=== PATIENT | female | born 1940 | race Caucasian/White ===

== ENCOUNTER 2017-05-28 17:19 | Inpatient (IN) ==
[2017-05-28] MEDS ORDERED: 0.9 % Sodium Chloride 1,000 ML IVC ONE (17:24)
[2017-05-28 17:58] LABS: Basophils % 0.4 %; Eosinophils # 0.2 K/mcL (0.0-0.6); Eosinophils % 3.8 %; Hematocrit 20.5 % (35.3-44.9); Immature Granulocytes % 0.4 % (0-4); Lymphocytes # 0.8 K/mcL (0.6-4.6); Lymphocytes % 15.1 %; Mean Corpuscular HGB Conc 33.2 g/dL (31.6-35.5); Mean Corpuscular Hemoglobin 40.5 pg (28.0-33.3); Mean Platelet Volume 11.5 fL (9.4-12.4); Monocytes # 1.2 K/mcL (0.0-1.3); Monocytes % 22.3 %; Platelet Count 295 K/mcL (140-400); Red Blood Count 1.68 M/mcL (3.82-4.97); Red Cell Distribution Width 17.3 % (11.5-14.5)
[2017-05-28 18:14] LABS: Alanine Aminotransferase 8 Units/L (0-55); Albumin/Globulin Ratio 0.6 (1.1-2.2); Alkaline Phosphatase 77 Units/L (38-126); Aspartate Amino Transferase 11 Units/L (5-34); BUN/Creatinine Ratio 31 (6-26); Bilirubin,Total 0.5 mg/dL (0.2-1.2); Blood Urea Nitrogen 27 mg/dL (7-20); Calcium 7.4 mg/dL (8.6-10.8); Carbon Dioxide 17 mEq/L (19-29); Chloride 106 mEq/L (98-109); Globulin 3.2 g/dL (2.4-3.5); Glucose 100 mg/dL (70-99); Osmolality,Calculated 279 (280-300); Potassium 3.4 mEq/L (3.5-4.5); Sodium 132 mEq/L (136-145); Total Protein 5.1 g/dL (6.0-8.3); eGFR For African Americans > 60 (> 60); eGFR For Non-African Americans > 60 (> 60)
[2017-05-28 18:30] LABS: Anisocytosis 1+ (Not Present); Hemoglobin 6.8 g/dL (11.5-15.4); Macrocytosis Present (Not Present); Platelet Estimate Normal (Normal); Reactive Lymphocytes Present (Not Present)
[2017-05-28 18:31] LABS: Albumin 1.9 g/dL (3.5-5.0); Lipase < 10 Units/L (8-78)
--- NOTE | 2017-05-28 18:40 | Emergency Department Note ---
Disposition Clinical Impression: Diarrhea Disposition: Still a Patient Condition: Good Referrals: Jarad Morrison MD [Primary Care Provider] - Time of Disposition: 18:50 Nausea/Vomiting/Diarrhea HPI - General Chief complaint: ED Nausea/Vomiting/Diarrhea Stated complaint: diarrhea/weakness Time Seen by Provider: 05/28/17 17:24 Source: patient Mode of arrival: EMS Limitations: no limitations Nursing Notes Reviewed: Yes Vital Signs Reviewed: Yes - History of Present Illness HPI Narrative: Patient presents to the ED with the chief complaint of diarrhea and weakness. She is complaining of diarrhea for one week and weakness for the last 5 days. States she has had so many episodes of diarrhea. She cannot remember how many. States that she cannot keep up with her by mouth intake to keep up with the amount of diarrhea. Denies any recent hospital admissions or antibiotic use. No similar symptoms previously. States that she is having some much diarrhea she cannot get out of bed. Lives at home alone. - Related Data Allergies Allergy/AdvReac Type Severity Reaction Status Date / Time No Known Allergies Allergy Verified 04/20/15 17:18 All systems ED: reviewed and negative except as stated. Constitutional: Denies: fever Cardiovascular: Denies: chest pain Gastrointestinal: Reports: abdominal pain (cramping after diarrhea ), diarrhea. Denies: vomiting, melena, hematochezia Genitourinary: Denies: dysuria Musculoskeletal: Denies: back pain Past Medical History - Past Medical History Attestation: Yes The following information was validated with the patient. Source: patient Medical history: Reports: diabetes, osteoporosis Surgical history: Reports: cholecystectomy, hip replacement - Social History Smoking Status: Current every day smoker Smokeless Tobacco Status: Yes Physical Exam - General Limitations: no limitations General appearance: alert, in no apparent distress - Head Head exam: atraumatic, normocephalic, normal inspection - Eye Eye exam: Present: normal appearance, PERRL, EOMI - ENT ENT exam: mucous membranes dry - Respiratory Respiratory exam: Present: normal lung sounds bilaterally - Cardiovascular Cardiovascular exam: Present: regular rate, normal rhythm, normal heart sounds - Abdominal Exam Abdominal exam: Present: soft, Non-Tender. Absent: tenderness, distention, guarding, rebound, rigidity - Neurological Exam Neurological exam: Present: alert, oriented X3 - Psychiatric Psychiatric exam: Present: normal affect, normal mood - Skin Skin exam: Present: warm, dry, intact, normal color Course Course Narrative: Patient having profuse diarrhea. Smells like C. difficile. We will check labs sent off C. difficile, ova and parasites and stool culture. Patient will also need CT the abdomen and pelvis despite being nontender due to the amount of diarrhea she has had alone in the emergency department. Nursing staff placed a rectal tube Vital Signs Temperature 98.0 F 05/28/17 17:23 Pulse Rate 82 05/28/17 17:23 Respiratory Rate 14 05/28/17 17:23 Blood Pressure 101/72 05/28/17 17:23 O2 Sat by Pulse Oximetry 94 05/28/17 17:23 Temperature 98.0 F 05/28/17 17:23 Pulse Rate 82 05/28/17 17:23 Respiratory Rate 14 05/28/17 17:23 Blood Pressure 101/72 05/28/17 17:23 O2 Sat by Pulse Oximetry 94 05/28/17 17:23 Oxygen Delivery Oxygen Delivery Nasal Cannula Nausea/Vomiting/Diarrhea - Lab Data Result diagrams: 05/28/17 17:43 05/28/17 17:43 Lab Results 05/28/17 05/28/17 Range/Units 17:43 17:43 WBC 5.2 (4.3-11.1) K/mcL RBC 1.68 L (3.82-4.97) M/mcL Hgb 6.8 L (11.5-15.4) g/dL Hct 20.5 L (35.3-44.9) % MCV 122.0 H (83.0-100.0) fL MCH 40.5 H (28.0-33.3) pg MCHC 33.2 (31.6-35.5) g/dL RDW 17.3 H (11.5-14.5) % Plt Count 295 (140-400) K/mcL MPV 11.5 (9.4-12.4) fL Immature Gran % 0.4 (0-4) % Seg Neutrophils % 58.0 % Lymphocytes % 15.1 % Monocytes % 22.3 % Eosinophils % 3.8 % Basophils % 0.4 % Neutrophils # 3.0 (1.6-8.9) K/mcL Lymphocytes # 0.8 (0.6-4.6) K/mcL Monocytes # 1.2 (0.0-1.3) K/mcL Eosinophils # 0.2 (0.0-0.6) K/mcL Basophils # 0.0 (0.0-0.2) K/mcL Reactive Lymphocytes Present A (Not Present) Platelet Estimate Normal (Normal) Anisocytosis 1+ A (Not Present) Macrocytosis Present A (Not Present) Sodium 132 L (136-145) mEq/L Potassium 3.4 L (3.5-4.5) mEq/L Chloride 106 (98-109) mEq/L Carbon Dioxide 17 L (19-29) mEq/L BUN 27 H (7-20) mg/dL Creatinine 0.88 (0.57-1.11) mg/dL Est GFR ( Amer) > 60 (> 60) Est GFR (Non-Af Amer) > 60 (> 60) BUN/Creatinine Ratio 31 H (6-26) Glucose 100 H (70-99) mg/dL Calculated Osmolality 279 L (280-300) Calcium 7.4 L (8.6-10.8) mg/dL Total Bilirubin 0.5 (0.2-1.2) mg/dL AST 11 (5-34) Units/L ALT 8 (0-55) Units/L Alkaline Phosphatase 77 (38-126) Units/L Serum Total Protein 5.1 L (6.0-8.3) g/dL Albumin 1.9 L (3.5-5.0) g/dL Globulin 3.2 (2.4-3.5) g/dL Albumin/Globulin Ratio 0.6 L (1.1-2.2) Lipase < 10 (8-78) Units/L S.B.A.R. - S.B.A.R. Situation: Demographics, MOA Background: Presenting Complaint, Relevant PMH, Meds, & Allergies Assessment: Vital Signs, Course and respsone to treatment, Exam Concerns, Patient/Family Expectation, Pertinant Lab Results, Outstanding Labs Recommendation: Barrier(s) to disposition, Recommendation based on pending studies, treatments, or consults S.B.A.R. Report Given to: Dr. Robles MazaBPedroAGregorio Repor Time: 18:50 Attestation Statement - Attestation Attestation: I examined this patient and my medical decision-making was reviewed with the Resident Physician. I agree with the documented findings, disposition and treatment plan as described except to the extent set forth below. Patient to ED complaining of diarrhea and weakness for several days. Patient states she cannot drink enough water. She states she is weak and having trouble getting up and walking. Denies any recent hospital admissions or antibiotics. Exam shows her to be cachectic and with dry mucous membranes. Her abdomen is soft. Plan. Labs CT abdomen. The patient had a profuse amount of diarrhea and a short amount of time. Rectal tube was inserted. Patient likely admission.
[2017-05-28 19:11] LABS: Bilirubin,Urine Small (Negative); Blood,Urine Negative (Negative); Clarity,Urine Turbid (Clear); Color,Urine Dark Yellow (Yellow); Glucose,Urine (UA) Normal (Normal); Ketones,Urine Trace mg/dL (Negative); Leukocyte Esterase,Urine Large (Negative); Nitrite,Urine Negative (Negative); PH,Urine 6.5 pH Units (5.0-8.0); Protein,Urine 30 mg/dL (Neg-Trace); Specific Gravity,Urine 1.016 (1.010-1.025); Urobilinogen,Urine Normal (Normal)
[2017-05-28 19:13] LABS: Bacteria,Urine Many per hpf (None-Few); Hyaline Casts,Urine Few per lpf (None-Few); RBC,Urine 0-3 per hpf (0-3); Squamous Epithelial Cell,Urine Many per lpf (None-Few); WBC,Urine 30-50 per hpf (0-3)
[2017-05-28] MEDS ORDERED: 0.9 % Sodium Chloride 1,000 ML ONE (20:38)
[2017-05-28] MEDS ORDERED: Vancomycin Oral Soln 250 MG/5 ML UDC PO STA (20:41)
[2017-05-28] MEDS ORDERED: MetroNIDAZOLE 500 MG/100 ML 500 MG/100 ML BAG IVPB ONE (20:41)
--- NOTE | 2017-05-28 21:56 | Emergency Department Note ---
Disposition Clinical Impression: C. difficile diarrhea, C. difficile colitis Disposition: Admitted As Inpatient Condition: Good Time of Disposition: 21:57 Nausea/Vomiting/Diarrhea HPI - General Chief complaint: ED Nausea/Vomiting/Diarrhea Stated complaint: diarrhea/weakness Time Seen by Provider: 05/28/17 17:24 Source: patient Mode of arrival: EMS Limitations: no limitations Nursing Notes Reviewed: Yes Vital Signs Reviewed: Yes - History of Present Illness HPI Narrative: Patient received on sign out from the day team, Dr. Pfeiffer and Dr. Patrick. Please refer to their note for complete history and physical exam on intake. History of present illness): Patient presents from home for 7 day history of profuse loose foul-smelling bowels. No hematochezia. No melena. No fever. Intermittent chills. She is unable to quantify her number of bowel movements. She has had 5+ since presentation to the emergency department prior to placement of the rectal tube. She has had no recent antibiotics. She lives at home by herself. Unknown exposure. She feels weak, fatigued, very thirsty. No chest pains, palpitations, dyspnea, diaphoresis. Mild abdominal cramping with bowel movements otherwise no abdominal pain. - Related Data Home Medications Medication Instructions Recorded Confirmed Acetaminophen [Tylenol] 500 mg PO Q6H PRN 05/28/17 05/28/17 Aspirin Enteric Coated [Aspirin EC] 81 mg PO DAILY 05/28/17 05/28/17 Calcium Carbonate [Calcium] 600 mg PO DAILY 05/28/17 05/28/17 Cholecalciferol (D-3) [Vitamin D] 1,000 unit PO DAILY 05/28/17 05/28/17 Insulin Glargine,Hum.rec.anlog 8 unit SQ 1200 PRN 05/28/17 05/28/17 [Lantus Solostar] Lisinopril [Zestril] 5 mg PO DAILY 05/28/17 05/28/17 Oxygen 1 each .ROUTE AD 05/28/17 05/28/17 Vit A/C/E AC/Znox/Cupric Oxide 1 each PO DAILY 05/28/17 05/28/17 [Eye Vitamin-Minerals Tablet] Allergies Allergy/AdvReac Type Severity Reaction Status Date / Time No Known Allergies Allergy Verified 04/20/15 17:18 All systems ED: reviewed and negative except as stated. Review of Systems: As Per HPI Constitutional: Denies: fever Cardiovascular: Denies: chest pain Gastrointestinal: Reports: abdominal pain (cramping after diarrhea ), diarrhea. Denies: vomiting, melena, hematochezia Genitourinary: Denies: dysuria Musculoskeletal: Denies: back pain Past Medical History - Past Medical History Medical history: Reports: diabetes, osteoporosis Surgical history: Reports: cholecystectomy, hip replacement - Social History Smoking Status: Current every day smoker Smokeless Tobacco Status: Yes Physical Exam Vital Signs Reviewed General: Patient is alert, oriented, and in no acute distress. She is resting comfortably in bed. HEENT: No facial asymmetry. Head is normocephalic and atraumatic. PERRL, EOMI. oral mucosa tacky. Trachea midline. Cardiovascular: Heart regular rate and rhythm without clicks, rubs, gallops, or murmurs. No JVD. PMI nondisplaced. Bilateral radial pulses 2/4 and equal. Respiratory: Symmetric chest rise with good respiratory effort. Bilateral breath sounds are clear without wheezing, crackles, or rhonchi. Abdomen: Bowel sounds present normoactive x-4 quadrants. Abdomen is soft, nondistended. Tender in the hypogastric. Psych: Patient's affect is appropriate for situation. Skin: Warm, dry, intact. - General Limitations: no limitations General appearance: alert, in no apparent distress Course Course Narrative: Patient received on sign out from the day team, Dr. Pfeiffer and Dr. Patrick. Please refer to their note for complete history and physical exam on intake. Patient stool sample positive for C. difficile toxin. Begin empiric Flagyl IV and vancomycin by mouth. Patient's blood pressures have been soft with systolic in the low 90s. We will continue IV fluid rehydration. Patient agrees to admission for continued evaluation and management. I discussed the patient with the admitting hospitalist, Dr. Mcintosh, who agrees to accept the patient continued evaluation and management. Vital Signs Temperature 98.0 F 05/28/17 17:23 Pulse Rate 82 05/28/17 17:23 Respiratory Rate 14 05/28/17 17:23 Blood Pressure 101/72 05/28/17 17:23 O2 Sat by Pulse Oximetry 94 05/28/17 17:23 Temperature 98.0 F 05/28/17 17:23 Pulse Rate 90 05/28/17 19:05 Respiratory Rate 18 05/28/17 19:05 Blood Pressure 110/82 05/28/17 19:05 O2 Sat by Pulse Oximetry 96 05/28/17 19:05 Oxygen Delivery Oxygen Delivery Nasal Cannula Nausea/Vomiting/Diarrhea - Lab Data Result diagrams: 05/28/17 17:43 05/28/17 17:43 Lab Results 05/28/17 05/28/17 05/28/17 Range/Units 17:43 17:43 18:50 WBC 5.2 (4.3-11.1) K/mcL RBC 1.68 L (3.82-4.97) M/mcL Hgb 6.8 L (11.5-15.4) g/dL Hct 20.5 L (35.3-44.9) % MCV 122.0 H (83.0-100.0) fL MCH 40.5 H (28.0-33.3) pg MCHC 33.2 (31.6-35.5) g/dL RDW 17.3 H (11.5-14.5) % Plt Count 295 (140-400) K/mcL MPV 11.5 (9.4-12.4) fL Immature Gran % 0.4 (0-4) % Seg Neutrophils % 58.0 % Lymphocytes % 15.1 % Monocytes % 22.3 % Eosinophils % 3.8 % Basophils % 0.4 % Neutrophils # 3.0 (1.6-8.9) K/mcL Lymphocytes # 0.8 (0.6-4.6) K/mcL Monocytes # 1.2 (0.0-1.3) K/mcL Eosinophils # 0.2 (0.0-0.6) K/mcL Basophils # 0.0 (0.0-0.2) K/mcL Reactive Lymphocytes Present A (Not Present) Platelet Estimate Normal (Normal) Anisocytosis 1+ A (Not Present) Macrocytosis Present A (Not Present) Sodium 132 L (136-145) mEq/L Potassium 3.4 L (3.5-4.5) mEq/L Chloride 106 (98-109) mEq/L Carbon Dioxide 17 L (19-29) mEq/L BUN 27 H (7-20) mg/dL Creatinine 0.88 (0.57-1.11) mg/dL Est GFR ( Amer) > 60 (> 60) Est GFR (Non-Af Amer) > 60 (> 60) BUN/Creatinine Ratio 31 H (6-26) Glucose 100 H (70-99) mg/dL Calculated Osmolality 279 L (280-300) Calcium 7.4 L (8.6-10.8) mg/dL Total Bilirubin 0.5 (0.2-1.2) mg/dL AST 11 (5-34) Units/L ALT 8 (0-55) Units/L Alkaline Phosphatase 77 (38-126) Units/L Serum Total Protein 5.1 L (6.0-8.3) g/dL Albumin 1.9 L (3.5-5.0) g/dL Globulin 3.2 (2.4-3.5) g/dL Albumin/Globulin Ratio 0.6 L (1.1-2.2) Lipase < 10 (8-78) Units/L Urine Color Dark Yellow (Yellow) Urine Clarity Turbid A (Clear) Urine pH 6.5 (5.0-8.0) pH Units Ur Specific [place] 1.016 (1.010-1.025) Urine Protein 30 H (Neg-Trace) mg/dL Urine Glucose (UA) Normal (Normal) mg/dL Urine Ketones Trace H (Negative) mg/dL Urine Blood Negative (Negative) Urine Nitrite Negative (Negative) Urine Bilirubin Small H (Negative) Urine Urobilinogen Normal (Normal) mg/dL Ur Leukocyte Esterase Large H (Negative) Urine Microscopic RBC 0-3 (0-3) per hpf Urine Microscopic WBC 30-50 H (0-3) per hpf Ur Squamous Epith Cells Many H (None-Few) per lpf Urine Bacteria Many H (None-Few) per hpf Hyaline Casts Few (None-Few) per lpf Ur Culture Indicated? YES A (NO) Stool Occult Blood (Negative) Stl C. diff Tox B Gene (Negative) Blood Type Antibody Screen 05/28/17 05/28/17 05/28/17 Range/Units 18:50 19:04 19:35 WBC (4.3-11.1) K/mcL RBC (3.82-4.97) M/mcL Hgb (11.5-15.4) g/dL Hct (35.3-44.9) % MCV (83.0-100.0) fL MCH (28.0-33.3) pg MCHC (31.6-35.5) g/dL RDW (11.5-14.5) % Plt Count (140-400) K/mcL MPV (9.4-12.4) fL Immature Gran % (0-4) % Seg Neutrophils % % Lymphocytes % % Monocytes % % Eosinophils % % Basophils % % Neutrophils # (1.6-8.9) K/mcL Lymphocytes # (0.6-4.6) K/mcL Monocytes # (0.0-1.3) K/mcL Eosinophils # (0.0-0.6) K/mcL Basophils # (0.0-0.2) K/mcL Reactive Lymphocytes (Not Present) Platelet Estimate (Normal) Anisocytosis (Not Present) Macrocytosis (Not Present) Sodium (136-145) mEq/L Potassium (3.5-4.5) mEq/L Chloride (98-109) mEq/L Carbon Dioxide (19-29) mEq/L BUN (7-20) mg/dL Creatinine (0.57-1.11) mg/dL Est GFR ( Amer) (> 60) Est GFR (Non-Af Amer) (> 60) BUN/Creatinine Ratio (6-26) Glucose (70-99) mg/dL Calculated Osmolality (280-300) Calcium (8.6-10.8) mg/dL Total Bilirubin (0.2-1.2) mg/dL AST (5-34) Units/L ALT (0-55) Units/L Alkaline Phosphatase (38-126) Units/L Serum Total Protein (6.0-8.3) g/dL Albumin (3.5-5.0) g/dL Globulin (2.4-3.5) g/dL Albumin/Globulin Ratio (1.1-2.2) Lipase (8-78) Units/L Urine Color (Yellow) Urine Clarity (Clear) Urine pH (5.0-8.0) pH Units Ur Specific [place] (1.010-1.025) Urine Protein (Neg-Trace) mg/dL Urine Glucose (UA) (Normal) mg/dL Urine Ketones (Negative) mg/dL Urine Blood (Negative) Urine Nitrite (Negative) Urine Bilirubin (Negative) Urine Urobilinogen (Normal) mg/dL Ur Leukocyte Esterase (Negative) Urine Microscopic RBC (0-3) per hpf Urine Microscopic WBC (0-3) per hpf Ur Squamous Epith Cells (None-Few) per lpf Urine Bacteria (None-Few) per hpf Hyaline Casts (None-Few) per lpf Ur Culture Indicated? (NO) Stool Occult Blood Negative (Negative) Stl C. diff Tox B Gene Positive (Negative) Blood Type O POSITIVE Antibody Screen NEGATIVE Attestation Statement - Attestation Attestation: I, Cas Arboleda MD, personally evaluated this patient and discussed their management with the resident physician. I reviewed the resident's note and agree with the documented findings, medical decision making, and plan of care. This patient was signed out at shift change from Dr. Patrick and Dr. pfeiffer. Please refer to their notes for complete details of the history and physical examination. Patient presented with a 7-10 day history of diarrhea. She has not had multiple episodes of watery foul-smelling diarrhea just after arrival and a rectal tube was placed. Stool was positive for C. difficile. Negative Hemoccult. Patient also found to be anemic with a hemoglobin of 6.8. Last hemoglobin was 10. CT of the abdomen and pelvis showed an acute nonspecific colitis or enterocolitis is suspected with bowel wall thickening/edema primarily involving the colon. There is associated mesenteric fat stranding. On examination patient is a well-developed well-nourished elderly female in no acute distress. She is alert and oriented. There is no cyanosis or diaphoresis. Labs reviewed. CT reviewed. The hospitalist, Dr. Mcintosh, was consulted and accepted admission of the patient.
[2017-05-28] MEDS ORDERED: Naloxone 0.4 MG/ML INJ IVP PRN (23:11)
[2017-05-28] MEDS ORDERED: Acetaminophen 325 MG TABLET PO PRN (23:11)
[2017-05-28] MEDS ORDERED: Ondansetron 4 MG/2 ML VIAL IVP PRN (23:11)
[2017-05-28] MEDS ORDERED: *HR* HYDROmorphone (PF) 1 MG/ML SYRINGE IVP PRN (23:11)
[2017-05-28] MEDS ORDERED: *HR* HYDROcodone/Acet 5/325 mg TABLET PO PRN (23:11)
--- NOTE | 2017-05-28 23:26 | Internal Med History&Physical ---
Date of Encounter: 05/29/17 Time of Encounter: 23:20 Assessment and Plan (1) C. difficile diarrhea Current visit: Yes Status: Acute - Diffuse watery diarrhea for multiple weeks. - Uncertain etiology, no recent antibiotic use, sick contacts, travel, recent hospitalizations. - C.diff toxin positive in ED. - Severe classification given albumin of 1.9, advanced age. Cr and wbc wnl - Oral vancomycin and flagyl started, 125 mg QID and 500 mg IV q8 - Fluid bolus of 1.5 L followed by maintenance fluids (2) COPD (chronic obstructive pulmonary disease) Current visit: Yes Status: Chronic - Chronic and stable per pt. - Continue home meds and supplimental O2 to saturation >88% Qualifiers: COPD type: unspecified COPD Qualified Code(s): J44.9 - Chronic obstructive pulmonary disease, unspecified (3) Anemia Current visit: Yes Status: Acute -H/H of 6.8/20.5 - Possible etiologies of chronic disease vs acute blood loss vs iron deficiency vs folate/B12 deficiency given MCV of 122 - Will order labs for reticulocytosis. LDH, reticulocyte count. - Protonix IV for precaution of GI bleed. Will repeat stool occult blood. - Type and cross. Will transfuse 1 unit PRBCs tonight with repeat CBC in AM. Qualifiers: Anemia type: unspecified type Qualified Code(s): D64.9 - Anemia, unspecified (4) Diabetes mellitus Current visit: Yes Status: Acute - BS of 100 in ED. A1c of 5.7% in july of last year - Repeat A1c pending. - Will start SSI correction scale. 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 - UA in ED positive for WBCs, leukocyte esterase. Culture pending. - Will start rocephin Qualifiers: Urinary tract infection type: acute cystitis Hematuria presence: without hematuria Qualified Code(s): N30.00 - Acute cystitis without hematuria (6) Hypokalemia Current visit: Yes Status: Acute K of 3.4 in ED. - Will replenish now. Repeat Am labs. Stat Mg lab. (7) DVT prophylaxis Current visit: Yes Status: Acute SCDs. Pt is anemic and having profuse diarrhea. Will hold off on anticoagulation for time being. Internal Medicine - H&P: HPI Chief complaint: diarrhea Admitted From: Emergency Dept Plans for Post Hospital Care: Home History of present illness: Ms. Ramirez is a 76 year old female who presents to ED with a complaint of diarrhea for the past 2 weeks. She states that her symptoms came on gradually and have progressively gotten to the point where she was unable to tolerate it. She admits that she has been getting progressively weaker. She is unable to describe the BMs as she is legally blind but she does state they have been watery and loose. She is unsure on how frequent. She also complains of intermittent nausea without vomiting, lightheadedness, subjective fevers with chills, occasional palpitations, decreased oral intake and SOB from her COPD. She denies any symptoms of chest pain, numbness, tingling, abdominal pain. She also admits to some dysuria during this time. She denies any recent illness, any antibiotic use within the last few months, sick contacts, travel. In the ED, VSS, labs show anemia, normal WBC, normal Cr, albumin 1.9. Stool positive for C.diff toxin. She was started on oral vanc and metronidazole and given fluids. Past Med Surg Social Fam HX - Past Medical History Medical history: COPD, diabetes, osteoporosis - Past Surgical History Surgical History: cholecystectomy, hip replacement - Social History Smoking Status: Current every day smoker Smokeless Tobacco Status: Yes Alcohol use: none Drug use: none Occupational status: retired Internal Medicine - H&P: Meds Acetaminophen [Tylenol] 500 mg PO Q6H PRN 05/28/17 [History] Aspirin Enteric Coated [Aspirin EC] 81 mg PO DAILY 05/28/17 [History] Calcium Carbonate [Calcium] 600 mg PO DAILY 05/28/17 [History] Cholecalciferol (D-3) [Vitamin D] 1,000 unit PO DAILY 05/28/17 [History] Insulin Glargine,Hum.rec.anlog [Lantus Solostar] 8 unit SQ 1200 PRN 05/28/17 [ History] Lisinopril [Zestril] 5 mg PO DAILY 05/28/17 [History] Oxygen 1 each .ROUTE AD 05/28/17 [History] Vit A/C/E AC/Znox/Cupric Oxide [Eye Vitamin-Minerals Tablet] 1 each PO DAILY [History] 3 Allergy/AdvReac Type Severity Reaction Status Date / Time No Known Allergies Allergy Verified 04/20/15 17:18 All Systems PM: A 10-system review of systems was performed and is negative for pertinent findings except as documented above in the HPI. - Constitutional Constitutional: chills, fatigue, fever(s), lethargy, weakness, no excessive sweating - Cardiovascular Cardiovascular ROS IM: lightheadedness, palpitations, no chest pain, no diaphoresis, no dyspnea, no dyspnea on exertion, no syncope - Respiratory Respiratory: cough (chronic COPD), dyspnea, no dyspnea on exertion, no wheezing , no excessive phlegm production, no change in phlegm color - Gastrointestinal Gastrointestinal: change in bowel habits, change in stool character, diarrhea, loose stools, nausea, no abdominal pain, no coffee ground emesis, no constipation, no hematemesis, no vomiting - Genitourinary Genitourinary: dysuria, urinary frequency - Musculoskeletal Musculoskeletal ROS IM: muscle weakness, no numbness, no tingling - Neurological Neurological ROS: dizziness, weakness, no headache(s), no numbness, no tingling - Constitutional Vitals: Temp Pulse Resp BP Pulse Ox 98.0 F 90 18 110/82 96 05/28/17 17:23 05/28/17 19:05 05/28/17 19:05 05/28/17 19:05 05/28/17 19:05 Exam: Gen.: Vitals noted. No acute distress. AAOx3 HEENT: PERRL, oropharynx clear, Normocephalic, atraumatic,dry mucus membranes Cardiac: RRR, no murmur, +S1/S2 Pulmonary: CTA bilaterally, no rales or rhonchi, equal chest expansion Abdomen: soft, tender to palpation in LLQ and RLQ. No rebound. Hyperactive BS. MSK: ROM intact, no joint swelling noted Extremities: no BLE edema, nontender calf, no cyanosis or clubbing Neuro: A&Ox3, moves all extremities, no focal deficits Psych: Appropriate mood and behavior Internal Med - H&P Results - Labs CBC & Chem 7: 05/28/17 17:43 05/28/17 17:43
[2017-05-28] MEDS ORDERED: 0.9 % Sodium Chloride 500 ML IVC ONE (23:29)
[2017-05-28] MEDS ORDERED: *HR* Dextrose 50 % in Water (Syg) 50 ML SYRINGE IVP PRN (23:51)
[2017-05-28] MEDS ORDERED: D5% in Water 1,000 ML IVC PRN (23:51)
[2017-05-28] MEDS ORDERED: Dextrose Gel 15 GM PO PRN ×2 (23:51)
--- NOTE | 2017-05-29 00:33 | Event Note ---
Date of Encounter: 05/29/17 Time of Encounter: 00:25 Patient seen and examined with medical technologist. Agree with assessment and plan. Severe C. difficile colitis. Will start the patients on IV flagyl and PO vancomycin. Patient also has a urinary tract infection. We will start the patient on ceftriaxone. Extend antibiotics for C diff 5 extra days because of ceftriaxone. Will hydrate. Replace electrolytes. Physical therapy occupational therapy and social media intern to see. Telemetry monitoring. She is full code
[2017-05-29 01:29] LABS: Basophils % 0.4 %; Eosinophils # 0.2 K/mcL (0.0-0.6); Hematocrit 19.5 % (35.3-44.9); Hemoglobin 6.5 g/dL (11.5-15.4); Immature Granulocytes % 0.2 % (0-4); Immature Platelets 6.3 % (1.1-6.1); Lymphocytes # 1.1 K/mcL (0.6-4.6); Lymphocytes % 21.9 %; Mean Corpuscular HGB Conc 33.3 g/dL (31.6-35.5); Mean Corpuscular Hemoglobin 40.9 pg (28.0-33.3); Mean Corpuscular Volume 122.6 fL (83.0-100.0); Mean Platelet Volume 10.5 fL (9.4-12.4); Monocytes # 0.9 K/mcL (0.0-1.3); Monocytes % 17.7 %; Neutrophils # 2.6 K/mcL (1.6-8.9); Platelet Count 317 K/mcL (140-400); Red Blood Count 1.59 M/mcL (3.82-4.97); Red Cell Distribution Width 17.8 % (11.5-14.5); Segmented Neutrophils % 54.8 %
[2017-05-29 01:33] LABS: Immature Reticulocyte % 16.3 % (11.0-38.0); Retculocyte # 0.02 M/mcL (0.05-0.10); Reticulocyte % 1.3 % (1.6-2.8)
[2017-05-29 01:43] LABS: BUN/Creatinine Ratio 29 (6-26); Blood Urea Nitrogen 24 mg/dL (7-20); Calcium 7.2 mg/dL (8.6-10.8); Carbon Dioxide 18 mEq/L (19-29); Chloride 110 mEq/L (98-109); Glucose 91 mg/dL (70-99); Magnesium 1.4 mg/dL (1.6-2.6); Osmolality,Calculated 284 (280-300); Phosphorous 3.8 mg/dL (2.3-4.7); Potassium 3.1 mEq/L (3.5-4.5); Sodium 135 mEq/L (136-145); eGFR For African Americans > 60 (> 60); eGFR For Non-African Americans > 60 (> 60)
[2017-05-29 01:49] LABS: Platelet Estimate Normal (Normal); Reactive Lymphocytes Present (Not Present)
[2017-05-29 01:50] LABS: Anisocytosis 1+ (Not Present); Macrocytosis Present (Not Present)
[2017-05-29] MEDS: 0.9 % Sodium Chloride 1,000 ML IVC SCH ×2 (02:48→23:18)
[2017-05-29] MEDS: Nicotine 21 MG PATCH.TD24 TD SCH ×2 (03:02→07:45)
[2017-05-29] MEDS ORDERED: Magnesium Sulfate 2 GM in D5% in Water 100 ML IVPB ONE (04:22)
[2017-05-29] MEDS: Pantoprazole 40 MG VIAL IVP SCH ×2 (06:01→18:27)
[2017-05-29] MEDS: Aspirin Enteric Coated 81 MG Tablet PO SCH (07:57)
[2017-05-29] MEDS: MetroNIDAZOLE 500 MG/100 ML 500 MG/100 ML BAG IVPB SCH ×3 (07:57→23:18)
[2017-05-29] MEDS: Insulin LISPRO 300 UNITS/3 ML VIAL SQ SCH ×3 (07:58→16:21)
[2017-05-29] MEDS: cefTRIAXone 1,000 MG in Water for inj. (sterile) 10 ML IVP SCH (10:55)
[2017-05-29] MEDS: Vancomycin Oral Soln 250 MG/5 ML UDC PO SCH ×5 (10:55→23:42)
[2017-05-29] MEDS ORDERED: 0.9 % Sodium Chloride 250 ML ONE (12:31)
[2017-05-29] MEDS: 0.9 % Sodium Chloride 250 ML ONE ×2 (12:42→12:43)
[2017-05-29 22:39] LABS: BUN/Creatinine Ratio 27 (6-26); Blood Urea Nitrogen 20 mg/dL (7-20); Calcium 6.6 mg/dL (8.6-10.8); Carbon Dioxide 17 mEq/L (19-29); Chloride 110 mEq/L (98-109); Glucose 189 mg/dL (70-99); Magnesium 1.4 mg/dL (1.6-2.6); Osmolality,Calculated 282 (280-300); Sodium 132 mEq/L (136-145); eGFR For African Americans > 60 (> 60); eGFR For Non-African Americans > 60 (> 60)
[2017-05-30 03:09] LABS: Hemoglobin 8.2 g/dL (11.5-15.4); Immature Platelets 6.9 % (1.1-6.1); Mean Corpuscular HGB Conc 34.2 g/dL (31.6-35.5); Mean Corpuscular Hemoglobin 36.6 pg (28.0-33.3); Mean Corpuscular Volume 107.1 fL (83.0-100.0); Mean Platelet Volume 11.6 fL (9.4-12.4); Nucleated Red Blood Cells 0.3 /100 WBC (0); Platelet Count 286 K/mcL (140-400); Red Blood Count 2.24 M/mcL (3.82-4.97)
[2017-05-30 03:53] LABS: Lymphocytes # 0.7 K/mcL (0.6-4.6); Monocytes # 0.6 K/mcL (0.0-1.3); Neutrophils # 6.1 K/mcL (1.6-8.9)
[2017-05-30 03:54] LABS: Poikilocytosis 2+ (Not Present)
[2017-05-30 03:55] LABS: Acanthocytes 1+ (Not Present); Macrocytosis Present (Not Present)
[2017-05-30 03:56] LABS: Hypochromasia Present (Not Present)
[2017-05-30 03:57] LABS: Platelet Estimate Normal (Normal)
[2017-05-30 03:58] LABS: Large Platelets Present (Not Present)
[2017-05-30 03:59] LABS: Anisocytosis 1+ (Not Present); Reactive Lymphocytes Present (Not Present)
[2017-05-30] MEDS: Pantoprazole 40 MG VIAL IVP SCH ×2 (06:43→17:07)
[2017-05-30] MEDS: Insulin LISPRO 300 UNITS/3 ML VIAL SQ SCH ×3 (07:51→17:25)
[2017-05-30] MEDS: MetroNIDAZOLE 500 MG/100 ML 500 MG/100 ML BAG IVPB SCH ×2 (08:03→17:08)
[2017-05-30] MEDS: Aspirin Enteric Coated 81 MG Tablet PO SCH (08:03)
[2017-05-30] MEDS: cefTRIAXone 1,000 MG in Water for inj. (sterile) 10 ML IVP SCH (08:04)
[2017-05-30] MEDS: Nicotine 21 MG PATCH.TD24 TD SCH (08:04)
[2017-05-30] MEDS: Vancomycin Oral Soln 250 MG/5 ML UDC PO SCH ×4 (08:05→21:57)
[2017-05-30 09:29] LABS: BUN/Creatinine Ratio 24 (6-26); Blood Urea Nitrogen 17 mg/dL (7-20); Calcium 6.9 mg/dL (8.6-10.8); Carbon Dioxide 15 mEq/L (19-29); Chloride 112 mEq/L (98-109); Glucose 94 mg/dL (70-99); Osmolality,Calculated 279 (280-300); Potassium 3.1 mEq/L (3.5-4.5); Sodium 134 mEq/L (136-145); eGFR For African Americans > 60 (> 60); eGFR For Non-African Americans > 60 (> 60)
[2017-05-30] MEDS: Multivit/Ca/Min/Fe/FA 1 TAB TABLET PO SCH (11:10)
[2017-05-30] MEDS: 0.9 % Sodium Chloride 1,000 ML IVC SCH (11:21)
[2017-05-30] MEDS ORDERED: Magnesium Sulfate 2 GM in D5% in Water 100 ML IVPB ONE ×2 (14:16→14:25)
--- NOTE | 2017-05-30 22:02 | Internal Med Progress Note ---
Date of Encounter: 05/29/17 Time of Encounter: 13:00 - Assessment and plan (1) C. difficile colitis Current Visit: Yes Status: Acute Assessment and plan: Continue IVF, Flagyl, oral vancomycin, advance diet as tolerated. - Subjective Interval history: No acute events. She is unable to tolerate food. Multiple BM loose clear per day. Denies fevers/chills. Complains of abdominal discomfort. - Constitutional Vitals: Temp Pulse Resp BP Pulse Ox 98.4 F 76 14 101/63 91 05/30/17 20:20 05/30/17 20:20 05/30/17 20:20 05/30/17 20:20 05/30/17 20:20 General appearance: Present: cachectic, A&O X 3, no acute distress Exam: CVS: rrr lungs: ctab abd: soft, nt/nd, hyperactive ext: no edema Internal Medicine: Result - Labs CBC & Chem 7: 05/30/17 02:39 05/30/17 02:39 Labs: Short CBC 05/30/17 Range/Units 02:39 WBC 7.4 D (4.3-11.1) K/mcL Hgb 8.2 L D (11.5-15.4) g/dL Hct 24.0 L (35.3-44.9) % Plt Count 286 (140-400) K/mcL Neutrophils # 6.1 (1.6-8.9) K/mcL BMP 05/29/17 05/30/17 22:05 02:39 Sodium 132 L 134 L Potassium 3.0 L 3.1 L Chloride 110 H 112 H Carbon Dioxide 17 L 15 L BUN 20 17 Creatinine 0.73 0.71 Glucose 189 H 94 Calcium 6.6 L 6.9 L - VTE Documentation of Mechanical Device: Intermittent pneumatic compression device Consult Discharge Plan - Plan Referrals: Jarad Morrison MD [Primary Care Provider] -
--- NOTE | 2017-05-30 22:08 | Internal Med Progress Note ---
Date of Encounter: 05/30/17 Time of Encounter: 15:39 - Assessment and plan (1) C. difficile colitis Current Visit: Yes Status: Acute Assessment and plan: Continue IVF, Flagyl, oral vancomycin, advance diet as tolerated. - Subjective Interval history: No acute events. She is unable to tolerate food. Multiple BM loose clear per day. Denies fevers/chills. Complains of abdominal discomfort. - Constitutional Vitals: Temp Pulse Resp BP Pulse Ox 98.4 F 76 14 101/63 91 05/30/17 20:20 05/30/17 20:20 05/30/17 20:20 05/30/17 20:20 05/30/17 20:20 General appearance: Present: cachectic, A&O X 3, no acute distress Exam: CVS: RRR Lungs: CTAB ABd; soft, nt, hyperactive bs ext: no edema Internal Medicine: Result - Labs CBC & Chem 7: 05/30/17 02:39 05/30/17 02:39 Labs: Short CBC 05/30/17 Range/Units 02:39 WBC 7.4 D (4.3-11.1) K/mcL Hgb 8.2 L D (11.5-15.4) g/dL Hct 24.0 L (35.3-44.9) % Plt Count 286 (140-400) K/mcL Neutrophils # 6.1 (1.6-8.9) K/mcL BMP 05/29/17 05/30/17 22:05 02:39 Sodium 132 L 134 L Potassium 3.0 L 3.1 L Chloride 110 H 112 H Carbon Dioxide 17 L 15 L BUN 20 17 Creatinine 0.73 0.71 Glucose 189 H 94 Calcium 6.6 L 6.9 L - VTE Documentation of Mechanical Device: Intermittent pneumatic compression device Consult Discharge Plan - Plan Referrals: Jarad Morrison MD [Primary Care Provider] -
[2017-05-31] MEDS: MetroNIDAZOLE 500 MG/100 ML 500 MG/100 ML BAG IVPB SCH ×4 (01:01→23:55)
[2017-05-31] MEDS: 0.9 % Sodium Chloride 1,000 ML IVC SCH (01:04)
[2017-05-31 05:11] LABS: Basophils % 0.6 %; Eosinophils # 0.2 K/mcL (0.0-0.6); Eosinophils % 2.6 %; Hematocrit 25.2 % (35.3-44.9); Hemoglobin 8.5 g/dL (11.5-15.4); Immature Granulocytes % 1.1 % (0-4); Lymphocytes # 0.9 K/mcL (0.6-4.6); Lymphocytes % 12.6 %; Mean Corpuscular HGB Conc 33.7 g/dL (31.6-35.5); Mean Corpuscular Hemoglobin 36.2 pg (28.0-33.3); Mean Corpuscular Volume 107.2 fL (83.0-100.0); Mean Platelet Volume 11.8 fL (9.4-12.4); Monocytes # 0.8 K/mcL (0.0-1.3); Monocytes % 11.1 %; Platelet Count 288 K/mcL (140-400); Red Blood Count 2.35 M/mcL (3.82-4.97)
[2017-05-31 05:23] LABS: BUN/Creatinine Ratio 19 (6-26); Blood Urea Nitrogen 12 mg/dL (7-20); Carbon Dioxide 16 mEq/L (19-29); Chloride 116 mEq/L (98-109); Glucose 95 mg/dL (70-99); Osmolality,Calculated 284 (280-300); Potassium 3.6 mEq/L (3.5-4.5); Sodium 137 mEq/L (136-145); eGFR For African Americans > 60 (> 60); eGFR For Non-African Americans > 60 (> 60)
[2017-05-31] MEDS: Pantoprazole 40 MG VIAL IVP SCH ×2 (05:37→18:08)
[2017-05-31 06:04] LABS: Macrocytosis Present (Not Present)
[2017-05-31 06:05] LABS: Anisocytosis 2+ (Not Present); Platelet Estimate Normal (Normal); Schistocytes 1+ (Not Present)
[2017-05-31 06:06] LABS: Reactive Lymphocytes Present (Not Present)
[2017-05-31] MEDS: Multivit/Ca/Min/Fe/FA 1 TAB TABLET PO SCH (09:14)
[2017-05-31] MEDS: Aspirin Enteric Coated 81 MG Tablet PO SCH (09:15)
[2017-05-31] MEDS: Nicotine 21 MG PATCH.TD24 TD SCH (09:18)
[2017-05-31] MEDS: cefTRIAXone 1,000 MG in Water for inj. (sterile) 10 ML IVP SCH (09:19)
[2017-05-31] MEDS: Vancomycin Oral Soln 250 MG/5 ML UDC PO SCH ×4 (09:20→20:53)
[2017-05-31] MEDS: Insulin LISPRO 300 UNITS/3 ML VIAL SQ SCH ×3 (09:20→17:44)
[2017-05-31] MEDS: Ringers Solution, Lactated 1,000 ML IVC SCH ×2 (09:21→20:52)
--- NOTE | 2017-05-31 17:04 | Electrocardiograph Report ---
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
--- NOTE | 2017-06-01 05:19 | Internal Med Progress Note ---
Date of Encounter: 05/31/17 Time of Encounter: 14:17 - Assessment and plan (1) C. difficile colitis Current Visit: Yes Status: Acute Assessment and plan: Continue IVF, Flagyl, oral vancomycin, advance diet as tolerated. Add D5 if patient needs more IVF. Nursing to change rectal bag, may remove tube if less stool output. (2) COPD (chronic obstructive pulmonary disease) Current Visit: Yes Status: Chronic Qualifiers: COPD type: unspecified COPD Qualified Code(s): J44.9 - Chronic obstructive pulmonary disease, unspecified (3) Anemia Current Visit: Yes Status: Acute Qualifiers: Anemia type: unspecified type Qualified Code(s): D64.9 - Anemia, unspecified (4) Diabetes mellitus Current Visit: Yes Status: Acute Qualifiers: Diabetes mellitus type: type 2 Diabetes mellitus complication status: with ophthalmic complications Diabetes mellitus complication detail: with diabetic retinopathy Diabetic retinopathy severity: with unspecified retinopathy severity Diabetes mellitus macular edema: macular edema presence unspecified Diabetes mellitus termite control servicer insulin use: with termite control servicer use Laterality: bilateral Qualified Code(s): E11.319 - Type 2 diabetes mellitus with unspecified diabetic retinopathy without macular edema; Z79.4 - custodial ( current) use of insulin; Z79.4 - termite control servicer (current) use of insulin; Z79.4 - custodial (current) use of insulin; Z79.4 - termite control servicer (current) use of insulin - Subjective Interval history: Patient still attempting clear liquid diet. Would like to advance but also has some abdominal discomfort, not as bad as yesterday. Rectal tube in place not having as much stool output. Had period of hypoglycemia as well BGT was in the 40s but she was asymptomatic. - Constitutional Vitals: Temp Pulse Resp BP Pulse Ox 97.3 F L 67 18 129/77 90 06/01/17 03:00 06/01/17 03:00 06/01/17 03:00 06/01/17 03:00 06/01/17 03:00 General appearance: Present: cachectic, A&O X 3, no acute distress Exam: HEENT: MMM Cardiovascular: Heart regular rate and rhythm without clicks, rubs, gallops, or murmurs. Respiratory:Bilateral breath sounds are clear without wheezing, crackles, or rhonchi. Abdomen: Bowel sounds present normoactive Abdomen is soft, nondistended. Psych: Patient's affect is appropriate for situation. Skin: Warm, dry, intact. Internal Medicine: Result - Labs CBC & Chem 7: 05/31/17 04:28 05/31/17 04:28 Labs: Short CBC 05/31/17 Range/Units 04:28 WBC 7.0 (4.3-11.1) K/mcL Hgb 8.5 L (11.5-15.4) g/dL Hct 25.2 L (35.3-44.9) % Plt Count 288 (140-400) K/mcL Neutrophils # 5.0 (1.6-8.9) K/mcL BMP 05/31/17 04:28 Sodium 137 Potassium 3.6 Chloride 116 H Carbon Dioxide 16 L BUN 12 Creatinine 0.63 Glucose 95 Calcium 7.0 L - VTE Documentation of Mechanical Device: Intermittent pneumatic compression device Consult Discharge Plan - Plan Referrals: Jarad Morrison MD [Primary Care Provider] -
[2017-06-01] MEDS: Ringers Solution, Lactated 1,000 ML IVC SCH ×2 (05:46→19:51)
[2017-06-01] MEDS: Pantoprazole 40 MG VIAL IVP SCH (05:48)
[2017-06-01 06:30] LABS: Basophils # 0.1 K/mcL (0.0-0.2); Basophils % 0.8 %; Eosinophils # 0.2 K/mcL (0.0-0.6); Eosinophils % 3.9 %; Hematocrit 25.7 % (35.3-44.9); Hemoglobin 8.7 g/dL (11.5-15.4); Immature Granulocytes % 1.1 % (0-4); Lymphocytes # 1.1 K/mcL (0.6-4.6); Lymphocytes % 17.6 %; Mean Corpuscular HGB Conc 33.9 g/dL (31.6-35.5); Mean Corpuscular Hemoglobin 35.8 pg (28.0-33.3); Mean Corpuscular Volume 105.8 fL (83.0-100.0); Mean Platelet Volume 11.6 fL (9.4-12.4); Monocytes # 0.7 K/mcL (0.0-1.3); Monocytes % 11.3 %; Platelet Count 295 K/mcL (140-400); Red Blood Count 2.43 M/mcL (3.82-4.97); Segmented Neutrophils % 65.3 %
[2017-06-01 06:37] LABS: Neutrophils # 4.1 K/mcL (1.6-8.9)
[2017-06-01 06:43] LABS: BUN/Creatinine Ratio 15 (6-26); Blood Urea Nitrogen 9 mg/dL (7-20); Calcium 7.3 mg/dL (8.6-10.8); Carbon Dioxide 18 mEq/L (19-29); Chloride 116 mEq/L (98-109); Glucose 88 mg/dL (70-99); Osmolality,Calculated 286 (280-300); Potassium 3.2 mEq/L (3.5-4.5); Sodium 139 mEq/L (136-145); eGFR For African Americans > 60 (> 60); eGFR For Non-African Americans > 60 (> 60)
[2017-06-01 06:56] LABS: Macrocytosis Present (Not Present); Platelet Estimate Normal (Normal)
[2017-06-01 06:57] LABS: Burr Cells 1+ (Not Present)
[2017-06-01 06:58] LABS: Poikilocytosis 1+ (Not Present)
[2017-06-01] MEDS: Insulin LISPRO 300 UNITS/3 ML VIAL SQ SCH ×3 (07:49→17:33)
[2017-06-01] MEDS: Nicotine 21 MG PATCH.TD24 TD SCH (08:36)
[2017-06-01] MEDS: Aspirin Enteric Coated 81 MG Tablet PO SCH (08:37)
[2017-06-01] MEDS: Multivit/Ca/Min/Fe/FA 1 TAB TABLET PO SCH (08:37)
[2017-06-01] MEDS: MetroNIDAZOLE 500 MG/100 ML 500 MG/100 ML BAG IVPB SCH ×2 (08:39→17:32)
[2017-06-01] MEDS: Vancomycin Oral Soln 250 MG/5 ML UDC PO SCH ×4 (08:41→20:02)
[2017-06-01] MEDS: Lactobacillus 1 EACH CAP.SPRINK PO SCH ×2 (09:10→20:01)
[2017-06-01] MEDS: Furosemide 40 MG/4 ML VIAL IVP SCH (12:46)
[2017-06-01] MEDS: levoFLOXacin 500 MG TABLET PO SCH (12:46)
--- NOTE | 2017-06-01 14:36 | Internal Med Progress Note ---
Date of Encounter: 06/01/17 Time of Encounter: 14:37 - Assessment and plan (1) Pneumonia Current Visit: Yes Status: Suspected Assessment and plan: Chest x-ray shows bilateral lower lobe infiltrates. Patient was receiving ceftriaxone. We will transition to levofloxacin. We will send blood cultures. Moderate risk for complications. Qualifiers: Pneumonia type: due to Pneumococcus Laterality: bilateral Lung location: lower lobe of lung Qualified Code(s): J13 - Pneumonia due to Streptococcus pneumoniae (2) Pulmonary edema Current Visit: Yes Status: Acute Assessment and plan: Chest x-ray shows signs of congestive heart failure and pulmonary edema. We will get 2-D echocardiogram. BNP is elevated. We will treat with intravenous Lasix. Stop IV fluids. Qualifiers: Chronicity: acute Qualified Code(s): J81.0 - Acute pulmonary edema (3) C. difficile diarrhea Current Visit: Yes Status: Resolved Assessment and plan: The diarrhea has now resolved. We will remove rectal tube. Continue treatment for C. difficile colitis. (4) C. difficile colitis Current Visit: Yes Status: Acute Assessment and plan: Continue Flagyl. We will stop oral vancomycin as this is patient's first episode. Also start lactobacillus. (5) COPD (chronic obstructive pulmonary disease) Current Visit: Yes Status: Chronic Assessment and plan: Continue bronchodilators as needed. Not in acute exacerbation. Qualifiers: COPD type: unspecified COPD Qualified Code(s): J44.9 - Chronic obstructive pulmonary disease, unspecified (6) Anemia Current Visit: Yes Status: Acute Assessment and plan: Status post 2 units packed red blood cell transfusion. Hemoglobin levels have since stabilized. At 8.7 today. Qualifiers: Anemia type: unspecified type Qualified Code(s): D64.9 - Anemia, unspecified (7) Diabetes mellitus Current Visit: Yes Status: Chronic Assessment and plan: Continue to monitor blood sugars and continue low correctional sliding scale insulin coverage. Diabetic diet. Qualifiers: Diabetes mellitus type: type 2 Diabetes mellitus complication status: with ophthalmic complications Diabetes mellitus complication detail: with diabetic retinopathy Diabetic retinopathy severity: with unspecified retinopathy severity Diabetes mellitus macular edema: macular edema presence unspecified Diabetes mellitus usp insulin use: with usp use Laterality: bilateral Qualified Code(s): E11.319 - Type 2 diabetes mellitus with unspecified diabetic retinopathy without macular edema; Z79.4 - intermediate card tender ( current) use of insulin; Z79.4 - FDC (current) use of insulin; Z79.4 - intermediate card tender (current) use of insulin; Z79.4 - FDC (current) use of insulin (8) Acute and chronic respiratory failure with hypoxia Current Visit: Yes Status: Acute Assessment and plan: Due to pulmonary edema and underlying COPD. Wean FiO2 as tolerated back to baseline. Patient has been previously prescribed home oxygen but she only uses it as needed. (9) Hypomagnesemia Current Visit: Yes Status: Acute Assessment and plan: Repleted intravenously. (10) DVT prophylaxis Current Visit: Yes Status: Acute Assessment and plan: With SCDs. We will also place patient On heparin subcutaneous as hemoglobin levels have stabilized. - Subjective Interval history: Patient is feeling better overall. Abdominal pain still is improving. She did have breakfast this morning without any difficulties. Her diarrhea is also resolving. Denies any chest pain or shortness of breath at this time. She is currently on 2-1/2 L O2 supplementation via nasal cannula. - Constitutional Vitals: Temp Pulse Resp BP Pulse Ox 97.3 F L 81 16 132/77 84 06/01/17 11:00 06/01/17 11:00 06/01/17 11:00 06/01/17 11:00 06/01/17 11:00 General appearance: Present: cachectic, A&O X 3, no acute distress, answers questions appropriately - Neck Neck exam general surgery: Present: supple, trachea midline. Absent: lymphadenopathy - Respiratory Respiratory exam: Present: CTAB. Absent: accessory muscle use, rales, rhonchi, wheezes - Cardiovascular Cardiovascular exam: Present: RRR, +S1, +S2. Absent: diastolic murmur, gallop, rubs, systolic murmur - GI/Abdominal GI/Abdominal exam: Present: normal bowel sounds, soft, no peritoneal signs. Absent: distended, tenderness - Rectal Additional comments: rectal tube in place - Extremities Exam Extremities exam: Present: warm, radial pulses palpable and symmetrical. Absent : calf tenderness, cyanotic, pedal edema Internal Medicine: Result - Labs CBC & Chem 7: 06/01/17 06:00 06/01/17 06:00 Labs: Short CBC 06/01/17 Range/Units 06:00 WBC 6.2 (4.3-11.1) K/mcL Hgb 8.7 L (11.5-15.4) g/dL Hct 25.7 L (35.3-44.9) % Plt Count 295 (140-400) K/mcL Neutrophils # 4.1 (1.6-8.9) K/mcL BMP 06/01/17 06:00 Sodium 139 Potassium 3.2 L Chloride 116 H Carbon Dioxide 18 L BUN 9 Creatinine 0.60 Glucose 88 Calcium 7.3 L - Impressions Impressions Chest X-Ray 06/01/17 08:45 IMPRESSION: Findings are concerning for congestive heart failure in setting of pre-existing there are COPD. Interval development of bilateral pleural effusions with bibasilar opacities. Recommend radiographic follow-up to complete resolution. D/ / Cirilo Dinh MD / Cirilo Dinh MD Interpreting Provider: Cirilo Dinh MD - VTE Documentation of Mechanical Device: Intermittent pneumatic compression device Consult Discharge Plan - Plan Referrals: Jarad Morrison MD [Primary Care Provider] -
[2017-06-01] MEDS: *HR* Heparin 5,000 UNIT/ML VIAL SQ SCH (17:32)
[2017-06-01] MEDS: 0.9 % Sodium Chloride 1,000 ML IVC SCH ×2 (19:51→19:52)
[2017-06-02] MEDS: MetroNIDAZOLE 500 MG/100 ML 500 MG/100 ML BAG IVPB SCH ×3 (00:38→16:26)
[2017-06-02] MEDS: 0.9 % Sodium Chloride 1,000 ML IVC SCH ×2 (03:42→05:51)
[2017-06-02 05:52] LABS: Basophils # 0.1 K/mcL (0.0-0.2); Eosinophils # 0.2 K/mcL (0.0-0.6); Eosinophils % 3.8 %; Hematocrit 26.4 % (35.3-44.9); Immature Granulocytes % 1.3 % (0-4); Lymphocytes # 0.9 K/mcL (0.6-4.6); Mean Corpuscular HGB Conc 34.1 g/dL (31.6-35.5); Mean Corpuscular Volume 105.6 fL (83.0-100.0); Mean Platelet Volume 11.2 fL (9.4-12.4); Monocytes # 0.5 K/mcL (0.0-1.3); Monocytes % 11.1 %; Neutrophils # 3.1 K/mcL (1.6-8.9); Platelet Count 319 K/mcL (140-400); Segmented Neutrophils % 64.8 %
[2017-06-02 06:05] LABS: BUN/Creatinine Ratio 10 (6-26); Blood Urea Nitrogen 6 mg/dL (7-20); Calcium 7.5 mg/dL (8.6-10.8); Carbon Dioxide 21 mEq/L (19-29); Chloride 112 mEq/L (98-109); Glucose 96 mg/dL (70-99); Osmolality,Calculated 285 (280-300); Potassium 3.7 mEq/L (3.5-4.5); Sodium 139 mEq/L (136-145); eGFR For African Americans > 60 (> 60); eGFR For Non-African Americans > 60 (> 60)
[2017-06-02] MEDS: *HR* Heparin 5,000 UNIT/ML VIAL SQ SCH (06:26)
[2017-06-02 06:36] LABS: Anisocytosis 1+ (Not Present); Platelet Estimate Normal (Normal); Poikilocytosis 1+ (Not Present)
[2017-06-02] MEDS: Multivit/Ca/Min/Fe/FA 1 TAB TABLET PO SCH (08:15)
[2017-06-02] MEDS: Lactobacillus 1 EACH CAP.SPRINK PO SCH (08:15)
[2017-06-02] MEDS: Furosemide 40 MG/4 ML VIAL IVP SCH (08:15)
[2017-06-02] MEDS: Aspirin Enteric Coated 81 MG Tablet PO SCH (08:15)
[2017-06-02] MEDS: Nicotine 21 MG PATCH.TD24 TD SCH (08:16)
[2017-06-02] MEDS: Insulin LISPRO 300 UNITS/3 ML VIAL SQ SCH ×2 (08:38→11:57)
[2017-06-02] MEDS: Vancomycin Oral Soln 250 MG/5 ML UDC PO SCH (09:27)
[2017-06-02 11:08] VITALS: BP 129/74
--- NOTE | 2017-06-02 12:06 | Discharge Summary ---
Date of Encounter: 06/02/17 Time of Encounter: 12:02 - Discharge Diagnosis (1) C. difficile colitis Priority: Primary Status: Acute (2) Pneumonia Priority: Secondary Status: Acute Qualifiers: Pneumonia type: due to unspecified organism Laterality: bilateral Lung location: lower lobe of lung Qualified Code(s): J18.9 - Pneumonia, unspecified organism (3) Pulmonary edema Priority: Secondary Status: Resolved Qualifiers: Chronicity: acute Qualified Code(s): J81.0 - Acute pulmonary edema (4) C. difficile diarrhea Priority: Secondary Status: Resolved (5) COPD (chronic obstructive pulmonary disease) Priority: Secondary Status: Chronic Qualifiers: COPD type: unspecified COPD Qualified Code(s): J44.9 - Chronic obstructive pulmonary disease, unspecified (6) Anemia Priority: Secondary Status: Acute Qualifiers: Anemia type: unspecified type Qualified Code(s): D64.9 - Anemia, unspecified (7) Diabetes mellitus Priority: Secondary Status: Chronic Qualifiers: Diabetes mellitus type: type 2 Diabetes mellitus complication status: with ophthalmic complications Diabetes mellitus complication detail: with diabetic retinopathy Diabetic retinopathy severity: with unspecified retinopathy severity Diabetes mellitus macular edema: macular edema presence unspecified Diabetes mellitus exterminator termite insulin use: with shelter use Laterality: bilateral Qualified Code(s): E11.319 - Type 2 diabetes mellitus with unspecified diabetic retinopathy without macular edema; Z79.4 - halfway ( current) use of insulin; Z79.4 - equipment operator intermodal yard (current) use of insulin; Z79.4 - halfway (current) use of insulin; Z79.4 - equipment operator intermodal yard (current) use of insulin (8) Acute and chronic respiratory failure with hypoxia Priority: Secondary Status: Acute (9) Congestive heart failure Priority: Secondary Status: Acute Qualifiers: Congestive heart failure type: diastolic Congestive heart failure chronicity: acute Qualified Code(s): I50.31 - Acute diastolic (congestive) heart failure (10) Hypomagnesemia Priority: Secondary Status: Acute (11) DVT prophylaxis Priority: Secondary Status: Acute - Discharge Medications Prescriptions: Albuterol Sulfate [Albuterol Inhaler] 2 puff IH Q4HR PRN #1 inhaler PRN Reason: Shortness Of Breath Furosemide [Lasix] 40 mg PO DAILY #30 tablet Lactobacillus [Culturelle] 1 each PO BID #60 cap.sprink levoFLOXacin [Levaquin] 500 mg PO 1300 #7 tablet metroNIDAZOLE [Flagyl] 500 mg PO TID #36 tablet Potassium Chloride 10 meq PO DAILY #30 tab.er.prt Home Medications: Acetaminophen [Tylenol] 500 mg PO Q6H PRN 05/28/17 [History] Aspirin Enteric Coated [Aspirin EC] 81 mg PO DAILY 05/28/17 [History] Calcium Carbonate [Calcium] 600 mg PO DAILY 05/28/17 [History] Cholecalciferol (D-3) [Vitamin D] 1,000 unit PO DAILY 05/28/17 [History] Insulin Glargine,Hum.rec.anlog [Lantus Solostar] 8 unit SQ 1200 PRN 05/28/17 [ History] Lisinopril [Zestril] 5 mg PO DAILY 05/28/17 [History] Oxygen 1 each .ROUTE AD 05/28/17 [History] Vit A/C/E AC/Znox/Cupric Oxide [Eye Vitamin-Minerals Tablet] 1 each PO DAILY [History] Albuterol Sulfate [Albuterol Inhaler] 2 puff IH Q4HR PRN #1 inhaler 06/02/17 [Rx ] Furosemide [Lasix] 40 mg PO DAILY #30 tablet 06/02/17 [Rx] Lactobacillus [Culturelle] 1 each PO BID #60 cap.sprink 06/02/17 [Rx] Potassium Chloride 10 meq PO DAILY #30 tab.er.prt 06/02/17 [Rx] levoFLOXacin [Levaquin] 500 mg PO 1300 #7 tablet 06/02/17 [Rx] metroNIDAZOLE [Flagyl] 500 mg PO TID #36 tablet 06/02/17 [Rx] Allergies/Adverse Reactions: 3 Allergy/AdvReac Type Severity Reaction Status Date / Time No Known Allergies Allergy Verified 04/20/15 17:18 Procedures/tests Complete & Pending: Procedures Performed prior 72 hours Category Date Time Status EV echocardiogram Routine Y 06/01/17 11:52 Completed Date of admission: 05/29/17 07:03 Primary care physician: Jarad Morrison MD Discharging clinician: Michael Wells Anticipated date of discharge: 06/02/17 - Patient Status Disposition: Transfer SNF Condition: Good Functional capacity at discharge: uses cane/walker Overall status at discharge: patient is progressing back to baseline - Discharge Instructions Instructions: Clostridium Difficile Infection (DC), Heart Failure (DC), Chronic Obstructive Pulmonary Disease (DC), Urinary Tract Infection in Women (DC ) Follow Up With: Jarad Morrison MD [Primary Care Provider] - (in 1 week) Forms: ED Satisfaction Letter - Diet and Activity Activity: resume usual activities as tolerated, wear oxygen at all times Diet: diabetic diet, low fat, low cholesterol, low salt diet Hospital course: Ms. Ramirez is a 76 year old female patient with a history of COPD, diabetes mellitus type 2, was hospitalized here after presenting to the ER with complaints of diarrhea for prior 2 weeks. Patient was diagnosed with C. difficile colitis. She was started on oral vancomycin and Flagyl. She was also diagnosed with acute urinary tract infection and was started on ceftriaxone. Initial CT scan also showed bibasal infiltrates. She continue to have diarrhea and abdominal discomfort over the next couple of days but it slowly started to improve. Initially a rectal tube was placed due to the significant amount of diarrhea that the patient was having. This has since been removed. Patient did receive significant amount of IV fluids to replenish her fluid losses from diarrhea. She developed pulmonary edema as a result and has responded well to intravenous Lasix that she received. 2-D echocardiogram done here shows an EF of 55% with indeterminate diastolic function. She will continue to take Lasix at home for now. She can follow up with her primary care provider for further management. She was also anemic on presentation with a hemoglobin of 6.5. She received 2 units of packed red blood cells. Since then her red blood cell counts have remained stable. Patient's urine culture was positive for Escherichia coli. She At this time, patient is clinically stable for discharge. She will be discharged on oral Flagyl to complete treatment course for his C. difficile and on Levaquin to complete treatment for UTI and pneumonia. She has been evaluated by physical therapy and recommended placement to skilled rehabilitation. She will be discharged to rehabilitation once she has a bed available. - Time Spent with Patient Total time spent providing and/or coordinating discharge services: Greater than 30 minutes (40 min) - Constitutional Vitals: Temp Pulse Resp BP Pulse Ox 97.4 F L 79 16 129/74 91 06/02/17 11:07 06/02/17 11:07 06/02/17 11:07 06/02/17 11:07 06/02/17 11:07 General appearance: Present: cachectic, A&O X 3, no acute distress, answers questions appropriately Exam: SOmnolent but easily awakes - Neck Neck exam general surgery: Present: supple, trachea midline. Absent: lymphadenopathy - Respiratory Respiratory exam: Present: prolonged expiratory phase. Absent: accessory muscle use, rales, rhonchi - Cardiovascular Cardiovascular exam: Present: RRR, +S1, +S2. Absent: diastolic murmur, gallop, rubs, systolic murmur - GI/Abdominal GI/Abdominal exam: Present: normal bowel sounds, soft, no peritoneal signs. Absent: distended, tenderness - Extremities Exam Extremities exam: Present: warm, radial pulses palpable and symmetrical. Absent : calf tenderness, cyanotic, pedal edema - VTE Documentation of Mechanical Device: Intermittent pneumatic compression device
--- NOTE | 2017-06-02 12:12 | Physician Discharge Referral ---
[facility] Referral Info Provider in Charge after Transfer: PCP Institutional Level of Care: Skilled - Diagnosis (1) Pneumonia Priority: Primary Status: Suspected (2) Pulmonary edema Priority: Secondary Status: Resolved (3) C. difficile diarrhea Priority: Secondary Status: Resolved (4) C. difficile colitis Priority: Secondary Status: Acute (5) COPD (chronic obstructive pulmonary disease) Priority: Secondary Status: Chronic (6) Anemia Priority: Secondary Status: Acute (7) Diabetes mellitus Priority: Secondary Status: Chronic (8) Acute and chronic respiratory failure with hypoxia Priority: Secondary Status: Acute (9) Congestive heart failure Priority: Secondary Status: Acute (10) Hypomagnesemia Priority: Secondary Status: Acute (11) DVT prophylaxis Priority: Secondary Status: Acute Prognosis: Fair Aware of Diagnosis: Patient, Family Aware of Prognosis: Patient, Family - Transfer Medications Prescriptions: Albuterol Sulfate [Albuterol Inhaler] 2 puff IH Q4HR PRN #1 inhaler PRN Reason: Shortness Of Breath Furosemide [Lasix] 40 mg PO DAILY #30 tablet Lactobacillus [Culturelle] 1 each PO BID #60 cap.sprink levoFLOXacin [Levaquin] 500 mg PO 1300 #7 tablet metroNIDAZOLE [Flagyl] 500 mg PO TID #36 tablet Potassium Chloride 10 meq PO DAILY #30 tab.er.prt Home Medications: Acetaminophen [Tylenol] 500 mg PO Q6H PRN 05/28/17 [History] Aspirin Enteric Coated [Aspirin EC] 81 mg PO DAILY 05/28/17 [History] Calcium Carbonate [Calcium] 600 mg PO DAILY 05/28/17 [History] Cholecalciferol (D-3) [Vitamin D] 1,000 unit PO DAILY 05/28/17 [History] Insulin Glargine,Hum.rec.anlog [Lantus Solostar] 8 unit SQ 1200 PRN 05/28/17 [ History] Lisinopril [Zestril] 5 mg PO DAILY 05/28/17 [History] Oxygen 1 each .ROUTE AD 05/28/17 [History] Vit A/C/E AC/Znox/Cupric Oxide [Eye Vitamin-Minerals Tablet] 1 each PO DAILY [History] Albuterol Sulfate [Albuterol Inhaler] 2 puff IH Q4HR PRN #1 inhaler 06/02/17 [Rx ] Furosemide [Lasix] 40 mg PO DAILY #30 tablet 06/02/17 [Rx] Lactobacillus [Culturelle] 1 each PO BID #60 cap.sprink 06/02/17 [Rx] Potassium Chloride 10 meq PO DAILY #30 tab.er.prt 06/02/17 [Rx] levoFLOXacin [Levaquin] 500 mg PO 1300 #7 tablet 06/02/17 [Rx] metroNIDAZOLE [Flagyl] 500 mg PO TID #36 tablet 06/02/17 [Rx] Allergies/Adverse Reactions: 3 Allergy/AdvReac Type Severity Reaction Status Date / Time No Known Allergies Allergy Verified 04/20/15 17:18 - Respiratory Orders Smoking Cessation: Smoking cessation has been advised. For more information, call the [place] Tobacco Quit Line at 0-784-TYVS-NOW. - Ancillary Orders May consult with Dentist, Increment Manager, Assembly Leader PRN - Advance Directives Code Status: DNR-Arrest (DNR CC arrest) - Mobility Orders Other (per PT eval) - Rehabiliation Orders Rehab Potential: Fair Rehab Orders: Evaluation for Physical Therapy, Evaluation for Occupational Therapy - Diet Orders No Concentrated Sweets (diabetic), Cardiac CERTIFICATION: I certify that the transfer of the above named patient to an Extended Care Facility is necessary for the continuing treatment of the diagnosis listed. The above information is true and accurate reflection of patient's current condition. Confidential - Redisclosure prohibited without a patient's written consent.
[2017-06-02] MEDS: levoFLOXacin 500 MG TABLET PO SCH (14:42)
[2017-06-03] MEDS ORDERED: Furosemide 40 MG TABLET PO SCH (09:00)
== END 2017-06-02 17:29 | DRG 371 ==
LOC: 3ANU 17:19 → EMEROO 17:19 → 3ANU 23:32 → SUATTDRO 05-29 07:03
PROVIDERS: ADMIT Student in an Organized Health Care Education/Training Program; ATTEND Internal Medicine